=== PATIENT | male | born 1955 | race Caucasian/White ===

== ENCOUNTER 2017-07-13 20:28 | Emergency (ER) | payer SELFPAY ==
[~2017-07-13] VITALS: Ht 165.1 cm; Wt 73.0 kg
[2017-07-13] MEDS ORDERED: ACETAMINOPHEN WITH CODEINE 300/30MG TABLET PO ONE (22:45)
[2017-07-13 23:08] VITALS: BP 156/91
[2017-07-13 23:14] LABS: CLARITY URINE TURBID (CLEAR); COLOR URINE ORANGE (YELLOW); GLUCOSE URINE NEGATIVE (NEGATIVE); KETONES URINE NEGATIVE (NEGATIVE); LEUKOCYTE ESTERASE URINE 3+ (NEGATIVE); NITRITE URINE POSITIVE (NEGATIVE); OCCULT BLOOD URINE 2+ (NEGATIVE); PH URINE 5.5 (4.5-8.0); PROTEIN URINE 2+ (NEGATIVE); SPECIFIC GRAVITY URINE 1.016 (1.005-1.030)
== END 2017-07-14 04:00 | disposition home or self-care (01) ==
LOC: ER 07-14 03:38
DX: N40.1 Benign prostatic hyperplasia with lower urinary tract symptoms (principal); N39.0 Urinary tract infection, site not specified; R31.0 Gross hematuria; I10 Essential (primary) hypertension; E11.9 Type 2 diabetes mellitus without complications; F17.210 Nicotine dependence, cigarettes, uncomplicated
CPT/HCPCS: 81001; 82962; 87077; 87086; 87186; 99284; Z7610